=== PATIENT | female | born 1990 | race Caucasian/White ===

== ENCOUNTER 2017-05-25 10:32 | Emergency (ER) | payer MEDICAID, OTHER ==
[2017-05-25 10:36] VITALS: BP 117/73; PULSE 82; RESP 18; TEMP 98.1; O2SAT 98
--- NOTE | 2017-05-25 11:01 | C.PDOC ---
History Of Present Illness 26 year old female presents to the ED with complaints of sudden onset of left knee pain and swelling for three days. Patient notes pain is exacerbated by movement and walking. She denies taking any medications for symptoms, weakness, numbness, or any other associated symptoms. (Valery Waterman) History Per: Patient History/Exam Limitations: no limitations Onset/Duration Of Symptoms: Days (3 days ) Current Symptoms Are (Timing): Still Present Recent travel outside of the [place]: No Time Seen by Provider: 05/25/17 10:55 Chief Complaint (Nursing): Lower Extremity Problem/Injury Past Medical History Reviewed: Historical Data, Nursing Documentation, Vital Signs Family History: States: Unknown Family Hx - Social History Hx Alcohol Use: No Hx Substance Use: No Review Of Systems Constitutional: Negative for: Fever, Chills Musculoskeletal: Positive for: Leg Pain (left knee pain and swelling ) Neurological: Negative for: Weakness, Numbness Physical Exam - Physical Exam Appears: Non-toxic, No Acute Distress Skin: Warm, Dry Head: Atraumatic Eye(s): bilateral: Normal Inspection Oral Mucosa: Moist Extremity: No Normal ROM (limited full ROM, due to pain ), No Tenderness (no tenderness to left knee ), Capillary Refill (good capillary refill, less than two seconds ), Other (Moderate effusion to anterior left knee. No laxity and no focal deficit. ) Neurological/Psych: Oriented x3, Normal Speech, Normal Cognition, Normal Cranial Nerves, Normal Motor, Normal Sensation ED Course And Treatment O2 Sat by Pulse Oximetry: 98 (room air ) Pulse Ox Interpretation: Normal - Other Rad Left Knee X-Ray X-Ray: Viewed By Me (neg), Read By Radiologist (NEG) Progress Note: Left knee X-Ray was ordered and patient was givenTylenol and Motrin. Medical Decision Making Medical Decision Making: Radiologist called for possible Osteochroma growth on the distal femur. Patient was called and the results were discussed with the patient. She will follow up with the PMD/Ortho/clinic for further evaluation. (Janneth Reddy) Disposition Counseled Patient/Family Regarding: Studies Performed, Diagnosis, Need For Followup - Disposition Disposition Time: 11:26 - Disposition Referrals: [facility] [Outside] [facility] [Outside] Disposition: HOME/ ROUTINE Condition: IMPROVED Instructions: Swollen Knee Joint (ED) Forms: [facility] (German), Work Excuse - Clinical Impression Clinical Impression: Knee effusion - Scribe Statement The provider has reviewed the documentation as recorded by the Scribe - Scribe Statement Lauren Ackerman All medical record entries made by the Scribe were at my direction and personally dictated by me. I have reviewed the chart and agree that the record accurately reflects my personal performance of the history, physical exam, medical decision making, and the department course for this patient. I have also personally directed, reviewed, and agree with the discharge instructions and disposition. (Valery Waterman)
--- NOTE | 2017-05-25 11:38 | RAD ---
PROCEDURE: Left Knee Radiographs. HISTORY: Pain. COMPARISON: None. FINDINGS: BONES: No acute fracture. Probable osteochondroma of the lateral distal left femoral diaphysis. These are typically seen in the metaphysis and point away from the joint. However, this abnormality is seen in the diaphysis and points neither towards or away from the joint. There is no evidence of a calcified cartilaginous. The finding of pain raises at least consideration of the possibility of mechanical impingement upon adjacent soft tissue structures or less commonly, malignant transformation of the cartilaginous cap. Followup is advised. JOINTS: Normal. No osteoarthritis. JOINT EFFUSION: None. OTHER FINDINGS: None. IMPRESSION: Osteochondroma of the distal left femur. Clinical presentation pain raises at least the possibility of malignant transformation of the cartilaginous cap. This is however less likely than mechanical impingement upon adjacent soft tissue structures.
== END 2017-05-25 11:41 | disposition home or self-care (01) ==
LOC: C.ER 10:32
DX: M25.462 Effusion, left knee (principal)